=== PATIENT | female | born 1985 | race American Indian/Alaskan Native ===

== ENCOUNTER 2017-08-07 17:59 | Emergency (ER) | payer OTHER ==
[2017-08-07 18:06] VITALS: BP 137/84; PULSE 90; RESP 16; TEMP 98.2; O2SAT 99
--- NOTE | 2017-08-07 18:17 | C.PDOC ---
History Of Present Illness 08/07/2017 Chrissy Alegria is a 31 y/o female, who is an employee at [employer] and was exposed to possible scabies. Patient currently has no symptoms , but wants medical clearance. Time Seen by Provider: 08/07/17 18:07 Chief Complaint (Nursing): Medical Clearance History Per: Patient History/Exam Limitations: no limitations Onset/Duration Of Symptoms: Days (4 days) Current Symptoms Are (Timing): Gone Severity: None Reports Recently: Seen In ED Past Medical History Reviewed: Historical Data, Nursing Documentation, Vital Signs Vital Signs: Last Vital Signs Temp 98.2 F 08/07/17 18:04 Pulse 90 08/07/17 18:04 Resp 16 08/07/17 18:04 BP 137/84 08/07/17 18:04 Pulse Ox 99 08/07/17 18:20 - Medical History PMH: Asthma, Mitral Valve Prolapse Family History: States: No Known Family Hx - Social History Hx Tobacco Use: No Hx Alcohol Use: Yes Hx Substance Use: No - Immunization History Hx Tetanus Toxoid Vaccination: Yes Hx Influenza Vaccination: No Hx Pneumococcal Vaccination: No Review Of Systems Constitutional: Negative for: Fever Cardiovascular: Negative for: Chest Pain Respiratory: Negative for: Shortness of Breath Gastrointestinal: Negative for: Nausea, Vomiting, Abdominal Pain Skin: Negative for: Rash Neurological: Negative for: Headache, Dizziness Physical Exam - Physical Exam Appears: Well, Non-toxic, No Acute Distress Skin: Normal Color, Warm, Dry, No Rash Head: Atraumatic, Normacephalic Eye(s): bilateral: Normal Inspection, PERRL, EOMI Nose: Normal Oral Mucosa: Moist Throat: Normal Neck: Normal, Supple Chest: Symmetrical, No Tenderness Cardiovascular: Rhythm Regular, No Friction Rub, No Murmur Respiratory: Normal Breath Sounds Gastrointestinal/Abdominal: Normal Exam, Soft, No Tenderness Back: Normal Inspection Extremity: Normal ROM, No Swelling Neurological/Psych: Oriented x3, Normal Speech, Normal Motor, Normal Sensation Gait: Steady ED Course And Treatment O2 Sat by Pulse Oximetry: 99 (room air) Pulse Ox Interpretation: Normal Medical Decision Making Medical Decision Making: Re-evaluation: Discussed results and plan with patient. Patient understands results and is agreeable with plan. Patient is stable for medical clearance and discharge. All questions answered. Disposition - Disposition Referrals: Kristofer Alegre MD, PhD [Staff Provider] - Disposition: HOME/ ROUTINE Disposition Time: 18:15 Condition: GOOD Additional Instructions: Follow up with the medical doctor within 1-2 days. Return if worsened. Prescriptions: Permethrin 5% [Permethrin 5% Cream] 60 gm EXT ONCE #6 tube Instructions: Scabies (ED) Forms: [facility] (Jordanian) - Clinical Impression Clinical Impression: Scabies exposure - Scribe Statement The provider has reviewed the documentation as recorded by the Scribe 08/07/2017 Scribe Attestation: Archana Medina MD Scribe Attestation: All medical record entries made by the Scribe were at my direction and personally dictated by me. I have reviewed the chart and agree that the record accurately reflects my personal performance of the history, physical exam, medical decision making, and the department course for this patient. I have also personally directed, reviewed, and agree with the discharge instructions and disposition.
== END 2017-08-07 18:18 | disposition home or self-care (01) ==
LOC: C.ER 17:59
DX: Z20.7 Contact with and (suspected) exposure to pediculosis, acariasis and other infestations (principal)

== ENCOUNTER 2017-09-08 15:18 | Emergency (ER) | payer OTHER ==
[2017-09-08 15:22] VITALS: BMI 35.2
[2017-09-08 15:24] VITALS: O2SAT 98
--- NOTE | 2017-09-08 16:11 | C.PDOC ---
History Of Present Illness 31 year old female presents to the ED for evaluation of right thumb and wrist pain which began last night. 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 Patient noted swelling to the area after she got home from work. Patient took Tramadol earlier today. Patient states the swelling has decreased but pain persists. She denies any other injuries or extremity numbness /weakness. Time Seen by Provider: 09/08/17 16:05 Chief Complaint (Nursing): Finger,Hand,&Wrist History Per: Patient History/Exam Limitations: no limitations Onset/Duration Of Symptoms: Hrs Current Symptoms Are (Timing): Still Present Quality: "Pain" Additional History Per: Patient Past Medical History Reviewed: Historical Data, Nursing Documentation, Vital Signs Vital Signs: Last Vital Signs Temp 97.8 F 09/08/17 17:04 Pulse 79 09/08/17 17:04 Resp 18 09/08/17 17:04 BP 147/99 H 09/08/17 17:04 Pulse Ox 98 09/08/17 18:54 - Medical History PMH: Asthma, Mitral Valve Prolapse Surgical History: No Surg Hx Family History: States: Unknown Family Hx - Social History Hx Tobacco Use: No Hx Alcohol Use: Yes Hx Substance Use: No - Immunization History Hx Tetanus Toxoid Vaccination: Yes Hx Influenza Vaccination: No Hx Pneumococcal Vaccination: No Review Of Systems Musculoskeletal: Positive for: Hand Pain (right wrist, right thumb ) Neurological: Negative for: Weakness, Numbness Physical Exam - Physical Exam Appears: Non-toxic, No Acute Distress Skin: Normal Color, Warm, Dry Extremity: Normal ROM, Tenderness (to 1st metacarpal and scaphoid regions on palpation), Capillary Refill (less than 2 seconds ), No Deformity Neurological/Psych: Oriented x3, Normal Speech, Normal Cognition, Normal Sensation Gait: Steady ED Course And Treatment O2 Sat by Pulse Oximetry: 98 (on RA) Pulse Ox Interpretation: Normal - Other Rad right wrist X-Ray: Read By Radiologist Interpretation: IMPRESSION: No acute displaced fracture, dislocation, or significant joint effusion identified. If symptoms persist, or if there is continued clinical concern, x-ray follow-up in 7-10 days should be considered. Medical Decision Making Medical Decision Making: Progress: right wrist XR ordered and reviewed. thumb spica splint applied to affected area due to snuffbox tenderness. On reassessment, patient is resting comfortably, showing no sign of distress and is stable for discharge. Patient is advised to follow up with orthopedic care within 1-2 days for further evaluation. Disposition Counseled Patient/Family Regarding: Studies Performed, Diagnosis, Need For Followup, Rx Given - Disposition Referrals: Cheryl Trejo MD [Staff Provider] - Disposition: HOME/ ROUTINE Disposition Time: 17:37 Condition: STABLE Additional Instructions: Wear splint, do not get wet. Ibuprofen for pain. Follow up with ortho/hand specialist- may need repeat xray of hand in a week to further evaluate scaphoid. Please follow up with pmd in 1-2 days to have your blood pressure evaluated. Prescriptions: Ibuprofen [Motrin] 600 mg PO TID #30 tab Instructions: Splint Care (ED), Finger Sprain (ED) Forms: [employer] (Kyrgyz), Work Excuse - Clinical Impression Clinical Impression: Sprain of hand, thumb, right - PA / LEAD [employer]BI[employer] DEVELOPER / Resident Statement MD/DO has reviewed & agrees with the documentation as recorded. - Scribe Statement The provider has reviewed the documentation as recorded by the Scribe (Josephine Tucker) All medical record entries made by the Scribe were at my direction and personally dictated by me. I have reviewed the chart and agree that the record accurately reflects my personal performance of the history, physical exam, medical decision making, and the department course for this patient. I have also personally directed, reviewed, and agree with the discharge instructions and disposition.
[2017-09-08 17:05] VITALS: BP 147/99; PULSE 79; RESP 18; TEMP 97.8
--- NOTE | 2017-09-08 17:07 | RAD ---
PROCEDURE: Right Wrist Radiographs. HISTORY: pain to scaphoid and first metacarpal COMPARISON: None available. FINDINGS: BONES: No acute displaced fracture. JOINTS: No dislocation. SOFT TISSUES: Unremarkable. No evidence of radiopaque foreign body OTHER FINDINGS: None. IMPRESSION: No acute displaced fracture, dislocation, or significant joint effusion identified. If symptoms persist, or if there is continued clinical concern, x-ray follow-up in 7-10 days should be considered.
== END 2017-09-08 17:53 | disposition home or self-care (01) ==
LOC: C.ER 15:18
DX: S63.601A Unspecified sprain of right thumb, initial encounter (principal); X58.XXXA Exposure to other specified factors, initial encounter; Y93.F9 Activity, other caregiving; Y92.239 Unspecified place in hospital as the place of occurrence of the external cause; Y99.0 Civilian activity done for income or pay

== ENCOUNTER 2017-12-25 16:10 | Emergency (ER) | payer OTHER ==
[2017-12-25 16:10] VITALS: BMI 35.2
[2017-12-25 16:29] VITALS: RESP 18; TEMP 98; O2SAT 100
[2017-12-25] MEDS ORDERED: Sodium Chloride 0.9% 1,000 ML IV ONE (16:31)
[2017-12-25] MEDS ORDERED: Sodium Chloride 0.9% 1,000 ML ONE (16:48)
[2017-12-25 17:35] LABS: BASO % 0.5 % (0.0-2.0); EOS # 0.1 K/uL (0.0-0.7); EOS % 1.1 % (0.0-4.0); HEMOGLOBIN 11.6 g/dL (11.0-16.0); LYMPH # 2.1 K/uL (1.0-4.3); LYMPH % 25.4 % (20.0-40.0); MEAN CELL VOLUME 86.8 fL (81.0-99.0); MEAN CORPUSCULAR HEMOGLOBIN 29.5 pg (27.0-31.0); MEAN PLATELET VOLUME 9.1 fL (7.2-11.7); MONO # 0.8 K/uL (0.0-0.8); MONO % 10.1 % (0.0-10.0); NEUT # 5.2 K/uL (1.8-7.0); NEUT % 62.9 % (50.0-75.0); NRBC % 0.1 % (0.0-2.0); RBC 3.95 Mil/uL (3.80-5.20); RED CELL DISTRIBUTION WIDTH 13.9 % (11.5-14.5); WHITE BLOOD COUNT 8.3 K/uL (4.8-10.8)
--- NOTE | 2017-12-25 17:44 | C.PDOC ---
History Of Present Illness 31 year old female, who is a [employer] employee, presents for evaluation of generalized weakness, nausea, sweatiness, and chills which began 2 days ago. Patient has a history of asthma and reports occasional shortness of breath. Patient is currently 16 weeks (). She denies fever, cough, runny nose, sore throat, abdominal pain, vaginal bleeding and dysuria at this time. Time Seen by Provider: 12/25/17 16:12 Chief Complaint (Nursing): Weakness/Neurological Deficit History Per: Patient History/Exam Limitations: no limitations Onset/Duration Of Symptoms: Days (2) Current Symptoms Are (Timing): Still Present Activity At Onset Of Symptoms: Standing Associated Symptoms Preceding Syncopal Episode: No Predromal Symptoms (Sudden Onset) Additional History Per: Patient Past Medical History Reviewed: Historical Data, Nursing Documentation, Vital Signs Vital Signs: Last Vital Signs Temp 98 F 12/25/17 16:28 Pulse 86 12/25/17 18:12 Resp 18 12/25/17 18:12 BP 137/75 12/25/17 18:12 Pulse Ox 100 12/25/17 18:12 - Medical History PMH: Asthma, Mitral Valve Prolapse Surgical History: No Surg Hx Family History: States: Unknown Family Hx - Social History Hx Tobacco Use: No Hx Alcohol Use: No Hx Substance Use: No - Immunization History Hx Tetanus Toxoid Vaccination: No Hx Influenza Vaccination: No Hx Pneumococcal Vaccination: No Review Of Systems Constitutional: Positive for: Chills, Weakness. Negative for: Fever ENT: Negative for: Nose Discharge, Throat Pain Respiratory: Positive for: Shortness of Breath. Negative for: Cough Gastrointestinal: Negative for: Abdominal Pain Genitourinary: Negative for: Vaginal Bleeding Physical Exam - Physical Exam Appears: Non-toxic, Other (mildly uncomfortable ) Skin: Normal Color, Warm, Dry Head: Atraumatic, Normacephalic Eye(s): bilateral: Normal Inspection Oral Mucosa: Moist Neck: Supple Chest: Symmetrical, No Deformity, No Tenderness Cardiovascular: Rhythm Regular, No Murmur Respiratory: Normal Breath Sounds, No Rales, No Rhonchi, No Wheezing Gastrointestinal/Abdominal: Soft, No Tenderness, No Guarding, No Rebound Extremity: Normal ROM, Capillary Refill (less than 2 seconds ) Neurological/Psych: Oriented x3, Normal Speech, Normal Cognition Gait: Steady ED Course And Treatment - Laboratory Results Result Diagrams: 12/25/17 17:29 12/25/17 17:29 O2 Sat by Pulse Oximetry: 100 (on RA) Pulse Ox Interpretation: Normal Progress Note: Bloodwork and urinalysis ordered and reviewed. IV Fluids administered. Disposition Counseled Patient/Family Regarding: Studies Performed, Diagnosis, Need For Followup, Rx Given - Disposition Referrals: Kt Teixeira MD [Staff Provider] - Disposition: HOME/ ROUTINE Disposition Time: 18:20 Condition: STABLE Additional Instructions: FOLLOW UP WITH YOUR ELECTRICAL TEST TECHNICIAN WITHIN 1 WEEK, AND MAKE SURE THEY MONITOR YOUR URINE PROTEIN AND GLUCOSE USE ANTIBIOITICS UNTIL FINISHED RETURN TO EMERGENCY ROOM IF SYMPTOMS WORSEN Prescriptions: Nitrofurantoin Macrocrystals [Macrobid] 1 cap PO BID #14 cap Instructions: Urinary Tract Infection in (ED) Forms: [employer] (Canadian) Print Language: ANGOLAN - POA Present On Arrival: None - Clinical Impression Clinical Impression: Glucosuria, Proteinuria, UTI in - Scribe Statement The provider has reviewed the documentation as recorded by the Scribe (Josephine Tucker) Provider Attestation: All medical record entries made by the Scribe were at my direction and personally dictated by me. I have reviewed the chart and agree that the record accurately reflects my personal performance of the history, physical exam, medical decision making, and the department course for this patient. I have also personally directed, reviewed, and agree with the discharge instructions and disposition.
[2017-12-25 17:48] LABS: CALCIUM 8.8 mg/dl (8.6-10.4); GFR AFRICAN-AMERICAN > 60; GFR NON-AFRICAN AMERICAN > 60
[2017-12-25 17:49] LABS: SQUAMOUS EPITHIAL 18 /hpf (0-5); URINE BACTERIA RARE (<OCC); URINE BILIRUBIN NEGATIVE (NEGATIVE); URINE BLOOD NEGATIVE (NEGATIVE); URINE CLARITY Hazy (Clear); URINE COLOR Yellow (YELLOW); URINE GLUCOSE (UA) 2+ mg/dL (Normal); URINE LEUKOCYTE ESTERASE 1+ Leu/uL (Negative); URINE NITRATE NEGATIVE (NEGATIVE); URINE PROTEIN 1+ mg/dL (NEGATIVE)
[2017-12-25 17:56] LABS: ALT/SGPT 24 U/L (9-52); AST/SGOT 32 U/L (14-36); BLOOD UREA NITROGEN 8 mg/dL (7-17)
[2017-12-25 18:10] VITALS: BP 137/75; PULSE 86
== END 2017-12-25 18:27 | disposition home or self-care (01) ==
LOC: C.ER 16:10
DX: O23.42 Unspecified infection of urinary tract in pregnancy, second trimester (principal); O12.12 Gestational proteinuria, second trimester; Z3A.16 16 weeks gestation of pregnancy; O26.892 Other specified pregnancy related conditions, second trimester; R81 Glycosuria
CPT/HCPCS: 36415; 80053; 81001; 85025; 96360; 99285; J7040

== ENCOUNTER 2018-01-26 17:47 | Inpatient (IN) | payer OTHER ==
[2018-01-26 17:47] VITALS: BMI 35.2
[2018-01-26 17:52] VITALS: RESP 20; TEMP 98.2
[2018-01-26] MEDS ORDERED: Sodium Chloride 0.9% 1,000 ML IV ONE (18:48)
[2018-01-26 19:26] LABS: BASO % 0.5 % (0.0-2.0); EOS # 0.2 K/uL (0.0-0.7); EOS % 1.7 % (0.0-4.0); LYMPH # 2.3 K/uL (1.0-4.3); LYMPH % 25.2 % (20.0-40.0); MEAN CELL VOLUME 87.2 fL (81.0-99.0); MEAN CORPUSCULAR HEMOGLOBIN 29.2 pg (27.0-31.0); MEAN CORPUSCULAR HGB CONC 33.4 g/dL (33.0-37.0); MEAN PLATELET VOLUME 8.9 fL (7.2-11.7); MONO # 0.8 K/uL (0.0-0.8); MONO % 8.9 % (0.0-10.0); NEUT # 5.8 K/uL (1.8-7.0); NEUT % 63.7 % (50.0-75.0); NRBC % 0.1 % (0.0-2.0); RBC 4.11 Mil/uL (3.80-5.20); RED CELL DISTRIBUTION WIDTH 13.8 % (11.5-14.5); WHITE BLOOD COUNT 9.1 K/uL (4.8-10.8)
[2018-01-26 19:27] LABS: HCG,QUALITATIVE URINE POSITIVE (NEGATIVE)
[2018-01-26 19:28] LABS: SQUAMOUS EPITHIAL 15 /hpf (0-5); URINE BACTERIA FEW (<OCC); URINE BILIRUBIN NEGATIVE (NEGATIVE); URINE BLOOD NEGATIVE (NEGATIVE); URINE CLARITY Hazy (Clear); URINE COLOR Yellow (YELLOW); URINE GLUCOSE (UA) 3+ mg/dL (Normal); URINE LEUKOCYTE ESTERASE 2+ Leu/uL (Negative); URINE PROTEIN NEGATIVE (NEGATIVE)
[2018-01-26 19:35] LABS: ALBUMIN 3.9 g/dL (3.5-5.0); ALT/SGPT 74 U/L (9-52); AST/SGOT 30 U/L (14-36); BLOOD UREA NITROGEN 6 mg/dL (7-17); CALCIUM 8.9 mg/dl (8.6-10.4); GFR AFRICAN-AMERICAN > 60; GFR NON-AFRICAN AMERICAN > 60
--- NOTE | 2018-01-26 19:42 | C.PDOC ---
History Of Present Illness 32 y/o female, , 20 wks , presents to the ER for evaluation of dizziness, weakness, and diffuse cramping abdominal pain which began earlier today. Patient denies fever, chills. recent illness, neck pain, sore throat, CP , SOB, dyspnea, diaphoresis, palpitation, V/D, back pain, UTI sx, denies vaginal bleeding, irritation or discharges. Ambulate to ED , not in any apparent distress. Time Seen by Provider: 01/26/18 18:09 Chief Complaint (Nursing): Abdominal Pain History Per: Patient History/Exam Limitations: no limitations Onset/Duration Of Symptoms: Hrs Current Symptoms Are (Timing): Still Present Severity: Moderate Past Medical History Reviewed: Historical Data, Nursing Documentation, Vital Signs Vital Signs: Last Vital Signs Temp 98.2 F 01/26/18 23:04 Pulse 109 H 01/26/18 23:04 Resp 20 01/26/18 23:04 BP 138/90 01/26/18 23:04 Pulse Ox 98 01/26/18 23:04 - Medical History PMH: Asthma, Mitral Valve Prolapse Other Surgeries: Hx of surgeries Family History: States: No Known Family Hx - Social History Hx Tobacco Use: No Hx Alcohol Use: No Hx Substance Use: No - Immunization History Hx Tetanus Toxoid Vaccination: No Hx Influenza Vaccination: No Hx Pneumococcal Vaccination: No Review Of Systems Except As Marked, All Systems Reviewed And Found Negative. Constitutional: Negative for: Fever, Chills Gastrointestinal: Positive for: Abdominal Pain (cramping abdominal pain) Neurological: Positive for: Weakness, Dizziness Physical Exam - Physical Exam Appears: Well, Non-toxic, No Acute Distress Skin: Normal Color, Warm Head: Normacephalic Eye(s): bilateral: PERRL Nose: No Flaring Oral Mucosa: Moist, No Drooling Throat: No Erythema, No Drooling Neck: Trachea Midline, Supple Chest: Symmetrical Cardiovascular: Rhythm Regular Respiratory: No Decreased Breath Sounds, No Accessory Muscle Use, No Rales, No Rhonchi, No Wheezing Gastrointestinal/Abdominal: Soft, No Distention, No Guarding, Other (Gravid) Back: No CVA Tenderness Extremity: Normal ROM, No Deformity, No Swelling Neurological/Psych: Oriented x3, Normal Speech ED Course And Treatment - Laboratory Results Result Diagrams: 01/26/18 19:19 01/26/18 19:19 Lab Interpretation: No Acute Changes Urine POC: Positive O2 Sat by Pulse Oximetry: 99 (RA) Pulse Ox Interpretation: Normal - CT Scan/US OB US Other Rad Studies (CT/US): Interpreted By Me, Radiology Report Reviewed CT/US Interpretation: EXAM: US After First Trimester, Transabdominal. CLINICAL HISTORY: 32 years old, female; Pain; Other: Abd pain ; Gestational age or lmp: 10-18-17; ; Additional. info: Abd. Pain. TECHNIQUE: Real-time transabdominal obstetrical ultrasound of the maternal pelvis and a second or third. trimester with image documentation. COMPARISON: No relevant prior studies available. FINDINGS: Fetus: Single live intrauterine gestation. Heart rate: heart rate of 151 beats per minute. Presentation: Vertex. Placenta: Posterior. No placenta previa or abruption. Amniotic fluid: Unremarkable. Anatomy: No gross anomaly is appreciated. BIOMETRICS. Gestational age by US: Estimated gestational age of 20 weeks 4 days by measurements. EFW: Estimated weight of 78 g (27.3%). BPD: 4.8 cm, correlating with 20 weeks 3 days. HC: 17.7 cm, correlating with 20 weeks 1 day. AC: 16.0 cm, correlating with 21 weeks 0 days. FL: 3.4 cm, correlating with 20 weeks 5 days. MATERNAL: Uterus: Unremarkable. No myometrial mass. Cervix: Funneling of cervix, 3.1 x 2.2 x 2.9 cm with mild debris. Adnexa: Ovaries: RIGHT ovary: Normal. LEFT ovary: Not visualized. No adnexal masses. Free fluid: No significant free fluid. IMPRESSION: 1. Single live intrauterine gestation. 2. Funneling of cervix. Clinical correlation and follow up are recommended. Thank you for allowing us to participate in the care of your patient. Dictated and Authenticated by: Hossein Mendoza MD Progress Note: Blood type: O positive. Blood work review and appears normal. UA reuslts (+) WBC, RBC. After US results review with radiology, OB on-call called for consult. Pt remained stable during the Ed evaluation, denies abd. pain or vaginal bleeding. AFter pt was evaluated by , admission recommend to [facility] floor with Dx: Premature cervical dilation. Disposition - Disposition Disposition: HOSPITALIZED Disposition Time: 22:49 Condition: STABLE - Clinical Impression Clinical Impression: Premature cervical dilation in second trimester - PA / SCOW HAND / Resident Statement MD/DO has reviewed & agrees with the documentation as recorded. - Scribe Statement The provider has reviewed the documentation as recorded by the Scribe Ezequiel Shetty Provider Attestation All medical record entries made by the Scribe were at my direction and personally dictated by me. I have reviewed the chart and agree that the record accurately reflects my personal performance of the history, physical exam, medical decision making, and the department course for this patient. I have also personally directed, reviewed, and agree with the discharge instructions and disposition.
[2018-01-26] MEDS ORDERED: DiphenhydrAMINE 50 mg/ml Inj IVP STA (21:16)
--- NOTE | 2018-01-26 21:21 | US ---
EXAM: US After First Trimester, Transabdominal CLINICAL HISTORY: 32 years old, female; Pain; Other: Abd pain; Gestational age or lmp: 10-18-17; ; Additional info: Abd. Pain TECHNIQUE: Real-time transabdominal obstetrical ultrasound of the maternal pelvis and a second or third trimester with image documentation. COMPARISON: No relevant prior studies available. FINDINGS: Fetus: Single live intrauterine gestation. Heart rate: heart rate of 151 beats per minute. Presentation: Vertex. Placenta: Posterior. No placenta previa or abruption. Amniotic fluid: Unremarkable. Anatomy: No gross anomaly is appreciated. BIOMETRICS Gestational age by US: Estimated gestational age of 20 weeks 4 days by measurements. EFW: Estimated weight of 78 g (27.3%). BPD: 4.8 cm, correlating with 20 weeks 3 days. HC: 17.7 cm, correlating with 20 weeks 1 day. AC: 16.0 cm, correlating with 21 weeks 0 days. FL: 3.4 cm, correlating with 20 weeks 5 days. MATERNAL: Uterus: Unremarkable. No myometrial mass. Cervix: Funneling of cervix, 3.1 x 2.2 x 2.9 cm with mild debris. Adnexa: Ovaries: RIGHT ovary: Normal. LEFT ovary: Not visualized. No adnexal masses. Free fluid: No significant free fluid. IMPRESSION: 1. Single live intrauterine gestation. 2. Funneling of cervix. Clinical correlation and follow up are recommended.
[2018-01-26] MEDS ORDERED: DiphenhydrAMINE 50 mg/ml Inj ONE (21:25)
[2018-01-26 23:05] VITALS: BP 138/90; PULSE 109
--- NOTE | 2018-01-26 23:46 | CP.PCM.HP ---
History of Present Illness - History of Present Illness History of Present Illness: 32 y.o. , LMP 08/31/17, SAKSHI 06/07/18, EGA 21w 2d c/o headaches, dizziness , and "tummy discomfort" - onset 1400 hours while getting ready for work. Denies abdominal pain/cramps; vaginal bleeding. Last had sexual intercourse mid- December,. Got to work: ate, drank and due to not feeling much better, came to E.D. for evaluation. In E.D.: U/A suggestive of UTI. Pelvic ultrasound obtained - significant for funneling of cervix "with debris"; cervical length of 0.56 cm; SIUP; AGA 20 weeks 4 days. (+) cardiac activity. Now, reports headache alleviated by tylenol. Dizziness has resolved. No nausea or vomiting currently; usually vomits once a day, in the morning. HPI: treated for UTI 12/27/17 though 01/12/18 - nitrofurantoin 1 tab p.o. BID x 20 days Pvt Ob: Dr. Blunt; last visit 12/27/17. No other issues to date P Ob: Spont ab x 2: 2012, 2015, both approx 4 weeks; no D&C needed. P [employer]: 11 x 30 x 6. 2014, abnormal Pap; S/P colpo - benign. Last Pap 06/2017 (-) . Denies h/o STIs, fibroids. (+) h/o ovarian cyst. Previously told to have PCOS PMH: 1) bronchitis - since ; 2) asthma - age 17. Never intubated. Last attack 2016. H/O steroid use in the past. 3) mitral valve prolapse - last cardiology evaluation >= 10 years ago; told would need antibiotics prophylaxis PSH: 1997, removal of cyst, left wrist. 2005, laparoscopic ovarian cystectomy - endometrioma. 2014, colposcopy Allergies: penicillin - rash/ hives (childhood history) Soc Hx: denies tobacco, illicit drug or EtOH use - during . Works in [employer] as a [employer]. Lives with her mom. FOB - estranged. Fam Hx: Mother alive 62 y.o. HTN, DM, COPD, CHF. Father age 49 - brain Cancer. (+) fam h/o other cancer -?lung? Present on Admission - Present on Admission Any Indicators Present on Admission: No Review of Systems - Review of Systems All systems: reviewed and no additional remarkable complaints except - Constitutional Constitutional: Headache - Genitourinary Genitourinary: Freq UTI Past Patient History - Infectious Disease Hx of Infectious Diseases: None - Tetanus Immunizations Tetanus Immunization: Unknown - Past Medical History & Family History Past Medical History?: Yes Pertinent Family History: Mother - HTN, DM, CHF, COPD Father - brain cancer - Past Social History Smoking Status: Never Smoked Alcohol: None Drugs: Denies Home Situation {Lives}: With Family (Mother) - CARDIAC Hx Cardiac Disorders: Yes Hx Mitral Valve Prolapse: Yes - PULMONARY Hx Respiratory Disorders: Yes Hx Asthma: Yes - NEUROLOGICAL Hx Neurological Disorder: No - HEENT Hx HEENT Problems: No - RENAL Hx Chronic Kidney Disease: No - ENDOCRINE/METABOLIC Hx Endocrine Disorders: No - HEMATOLOGICAL/ONCOLOGICAL Hx Blood Disorders: No - INTEGUMENTARY Hx Dermatological Problems: No - MUSCULOSKELETAL/RHEUMATOLOGICAL Hx Musculoskeletal Disorders: No - GASTROINTESTINAL Hx Nausea: Yes Hx Vomiting: Yes (once a day/QAM) - GENITOURINARY/GYNECOLOGICAL Hx Genitourinary Disorders: No Hx Urinary Tract Infection: Yes LMP:: 08/31/17 : 3 Para: 0 Termination of : 2 - PSYCHIATRIC Hx Substance Use: No - SURGICAL HISTORY Hx Surgeries: Yes Hx Orthopedic Surgery: Yes (right wrist surgery) Other/Comment: ovarian cyst removal x1 - ANESTHESIA Hx Anesthesia: Yes Hx Anesthesia Reactions: No Meds Allergies/Adverse Reactions: Allergies Allergy/AdvReac Type Severity Reaction Status Date / Time Penicillins Allergy RASH Verified 01/26/18 17:52 Physical Exam - Constitutional Appears: Well, No Acute Distress - Head Exam Head Exam: NORMAL INSPECTION - Eye Exam Eye Exam: Normal appearance - ENT Exam ENT Exam: Mucous Membranes Moist - Neck Exam Neck exam: Positive for: Full Rom - Respiratory Exam Respiratory Exam: NORMAL BREATHING PATTERN - Cardiovascular Exam Cardiovascular Exam: REGULAR RHYTHM - GI/Abdominal Exam GI & Abdominal Exam: Soft, Tenderness (suprapubic) - Exam External exam: NORMAL EXTERNAL EXAM Speculum exam: Vaginal Discharge (Bulging amnionic sac) Bimanual exam: Uterine Enlargement (4-5 cm dilated; 80% effaced) - Extremities Exam Extremities exam: Positive for: full ROM - Back Exam Back exam: NORMAL INSPECTION - Neurological Exam Neurological exam: Alert, Normal Gait, Oriented x3 - Psychiatric Exam Psychiatric exam: Normal Affect, Normal Mood - Skin Skin Exam: Dry, Intact, Normal Color, Warm Results - Vital Signs Recent Vital Signs: Last Vital Signs Temp 98.2 F 01/26/18 17:48 Pulse 98 H 01/26/18 17:48 Resp 20 01/26/18 17:48 BP 152/105 H 01/26/18 21:51 Pulse Ox 99 01/26/18 22:49 - Labs Result Diagrams: 01/26/18 19:19 01/26/18 19:19 Labs: Laboratory Results - last 24 hr 01/26/18 01/26/18 01/26/18 19:19 19:19 19:19 WBC 9.1 RBC 4.11 Hgb 12.0 Hct 35.9 MCV 87.2 MCH 29.2 MCHC 33.4 RDW 13.8 Plt Count 247 MPV 8.9 Neut % (Auto) 63.7 Lymph % (Auto) 25.2 Howard % (Auto) 8.9 Eos % (Auto) 1.7 Baso % (Auto) 0.5 Neut # (Auto) 5.8 Lymph # (Auto) 2.3 Howard # (Auto) 0.8 Eos # (Auto) 0.2 Baso # (Auto) 0.0 Sodium 137 Potassium 3.7 Chloride 102 Carbon Dioxide 21 L Anion Gap 18 BUN 6 L Creatinine 0.6 L Est GFR ( Amer) > 60 Est GFR (Non-Af Amer) > 60 Random Glucose 85 Calcium 8.9 Total Bilirubin 0.2 AST 30 ALT 74 H D Alkaline Phosphatase 74 Total Protein 7.9 Albumin 3.9 Globulin 3.9 Albumin/Globulin Ratio 1.0 Beta HCG, Quant 55671.00 Urine Color Yellow Urine Clarity Hazy Urine pH 6.0 Ur Specific [place] 1.018 Urine Protein Negative Urine Glucose (UA) 3+ H Urine Ketones Trace Urine Blood Negative Urine Nitrate Negative Urine Bilirubin Negative Urine Urobilinogen 2.0 H Ur Leukocyte Esterase 2+ H Urine WBC (Auto) 23 H Urine RBC (Auto) 1 Ur Squamous Epith Cells 15 H Urine Bacteria Few H Urine HCG, Qual Positive Blood Type Antibody Screen 01/26/18 19:19 WBC RBC Hgb Hct MCV MCH MCHC RDW Plt Count MPV Neut % (Auto) Lymph % (Auto) Howard % (Auto) Eos % (Auto) Baso % (Auto) Neut # (Auto) Lymph # (Auto) Howard # (Auto) Eos # (Auto) Baso # (Auto) Sodium Potassium Chloride Carbon Dioxide Anion Gap BUN Creatinine Est GFR ( Amer) Est GFR (Non-Af Amer) Random Glucose Calcium Total Bilirubin AST ALT Alkaline Phosphatase Total Protein Albumin Globulin Albumin/Globulin Ratio Beta HCG, Quant Urine Color Urine Clarity Urine pH Ur Specific [place] Urine Protein Urine Glucose (UA) Urine Ketones Urine Blood Urine Nitrate Urine Bilirubin Urine Urobilinogen Ur Leukocyte Esterase Urine WBC (Auto) Urine RBC (Auto) Ur Squamous Epith Cells Urine Bacteria Urine HCG, Qual Blood Type O POSITIVE Antibody Screen Negative Assessment & Plan - Assessment and Plan (Free Text) Assessment: 32 y.o. , 20w 4d advanced cervical dilatation - history consistent with cervical insufficiency; UTI. Options discussed with patient: uterine evacuation - due to non viability of fetus; placement of cervical cerclage. Potential complications involved with placement of cerclage was discussed at length: continued cervical dilatation resulting in bleeding and need for removal of cerclage; rupture of membranes, also requiring removal of cerclage. Lastly, infection and the possibility of maternal sepsis and . Patient expressed an understanding and desires to proceed with placement of rescue cerclage. Dr. Blunt was contacted. He discussed the case with MFM at [facility] - possible transfer of patient to that institution in anticipation of placement of cervical cerclage. Transfer to [facility] was declined. All of the above was discussed with patient , who expressed an understanding. Her questions were answered. Plan: Admit Trendelenburg position NPO IVFs Clindamycin GC/lilian UDS SCD Conservative management Possible cerclage placement - Date & Time Date: 01/27/18 Time: 00:06
[2018-01-27] MEDS ORDERED: Clindamycin 600mg/50ml NS 600 MG/50 ML BAG IVPB ONE (00:28)
[2018-01-27] MEDS ORDERED: Dextrose 5%/Lactated Ringer's 1,000 ML IV SCH (00:30)
[2018-01-27] MEDS ORDERED: Clindamycin 600mg/50ml NS 600 MG/50 ML BAG IVPB SCH (01:00)
[2018-01-27 01:07] LABS: BARBITURATES, UR NEGATIVE (NEGATIVE); BENZODIAZEPINES, UR NEGATIVE (NEGATIVE); OPIATES, UR NEGATIVE (NEGATIVE); PHENCYCLIDINE, UR NEGATIVE (NEGATIVE)
[2018-01-28 15:41] VITALS: O2SAT 99
== END 2018-01-27 07:45 | disposition short-term general hospital (02) | DRG 782 ==
LOC: C.ER 17:47 → C.4D 22:40 → C.9E 22:40 → C.4D 23:02
PROVIDERS: ADMIT Obstetrics & Gynecology; ATTEND Obstetrics & Gynecology
DX: O34.32 Maternal care for cervical incompetence, second trimester (principal); Z3A.20 20 weeks gestation of pregnancy; Z87.440 Personal history of urinary (tract) infections

== ENCOUNTER 2019-03-01 16:01 | Emergency (ER) | payer BC, OTHER ==
[2019-03-01 16:02] VITALS: BMI 35.2
[2019-03-01 16:12] VITALS: BP 120/80; PULSE 82; RESP 18; TEMP 98.1; O2SAT 100
--- NOTE | 2019-03-01 18:26 | C.PDOC ---
History Of Present Illness 33-year-old female presents to the ED requesting urine drug as required by her school. Patient offers no physical complaints at this time. Time Seen by Provider: 03/01/19 16:06 Chief Complaint (Nursing): Medical Clearance History Per: Patient History/Exam Limitations: no limitations Additional History Per: Patient Past Medical History Reviewed: Historical Data, Nursing Documentation, Vital Signs Vital Signs: Last Vital Signs Temp 98.1 F 03/01/19 16:08 Pulse 82 03/01/19 16:08 Resp 18 03/01/19 16:08 BP 120/80 03/01/19 16:08 Pulse Ox 100 03/01/19 16:08 - Medical History PMH: Asthma, Mitral Valve Prolapse Surgical History: No Surg Hx Family History: States: No Known Family Hx - Social History Hx Tobacco Use: No Hx Alcohol Use: No Hx Substance Use: No - Immunization History Hx Tetanus Toxoid Vaccination: No Hx Influenza Vaccination: No Hx Pneumococcal Vaccination: No Review Of Systems Constitutional: Positive for: Other (urine drug screen for school ) Cardiovascular: Negative for: Chest Pain, Palpitations Respiratory: Negative for: Shortness of Breath Gastrointestinal: Negative for: Nausea, Vomiting, Abdominal Pain, Diarrhea Skin: Negative for: Rash Physical Exam - Physical Exam Appears: Well, Non-toxic, No Acute Distress Skin: Normal Color, Warm, Dry Oral Mucosa: Moist Cardiovascular: Rhythm Regular Respiratory: Normal Breath Sounds, No Rales, No Rhonchi, No Wheezing Neurological/Psych: Oriented x3 Gait: Steady ED Course And Treatment O2 Sat by Pulse Oximetry: 100 (on RA) Pulse Ox Interpretation: Normal Progress Note: UDS ordered and reviewed. Results given to patient. Disposition Counseled Patient/Family Regarding: Diagnosis, Need For Followup - Disposition Referrals: [facility] [Outside] Disposition: HOME/ ROUTINE Disposition Time: 18:40 Condition: STABLE Instructions: Drug Testing Forms: [employer] (Libyan) Print Language: GAMBIAN - Clinical Impression Clinical Impression: Medical assessment, Encounter for drug screening - Scribe Statement The provider has reviewed the documentation as recorded by the Scribe (Josephine Tucker) Provider Attestation: All medical record entries made by the Scribe were at my direction and personally dictated by me. I have reviewed the chart and agree that the record accurately reflects my personal performance of the history, physical exam, medical decision making, and the department course for this patient. I have also personally directed, reviewed, and agree with the discharge instructions and disposition.
[2019-03-01 18:33] LABS: BARBITURATES, UR NEGATIVE (NEGATIVE); BENZODIAZEPINES, UR NEGATIVE (NEGATIVE); OPIATES, UR NEGATIVE (NEGATIVE); PHENCYCLIDINE, UR NEGATIVE (NEGATIVE)
== END 2019-03-01 18:42 | disposition home or self-care (01) ==
LOC: C.ER 16:01
DX: Z02.89 Encounter for other administrative examinations (principal)
CPT/HCPCS: 99282; G0480